=== PATIENT | male | born 1945 | race Caucasian/White ===

== ENCOUNTER → 2016-08-14 | Outpatient (CLI) | payer MEDICARE, OTHER | END | disposition home or self-care (01) | LOC: PCVCIMAG 12:34 | PROVIDERS: ATTEND Nuclear Medicine Nuclear Cardiology | DX: I73.9 Peripheral vascular disease, unspecified (principal); I25.10 Atherosclerotic heart disease of native coronary artery without angina pectoris; I77.9 Disorder of arteries and arterioles, unspecified; I45.9 Conduction disorder, unspecified; I10 Essential (primary) hypertension; E78.00 Pure hypercholesterolemia, unspecified; J44.9 Chronic obstructive pulmonary disease, unspecified; I65.21 Occlusion and stenosis of right carotid artery; Z95.820 Peripheral vascular angioplasty status with implants and grafts | CPT/HCPCS: 93880; 93925; 93978; G0463 ==

== ENCOUNTER → 2017-01-12 | Outpatient (CLI) | payer MEDICARE, OTHER ==
--- NOTE | 2017-01-12 12:10 | PCVCIMAG ---
EXAM: BILATERAL CAROTID DUPLEX INDICATION: Carotid Occlusive Disease. Previous left carotid endarterectomy. FINDINGS: Doppler Measurements (centimeters per second): RIGHT: Peak CCA-76, Peak ECA-136, Diastolic ICA-25, Peak ICA-118, ICA/CCA Ratio-1.6. LEFT: Peak CCA-102, Peak ECA-130, Diastolic ICA-16, Peak ICA-92, ICA/CCA Ratio-0.9. RIGHT CAROTID: The carotid bulb has moderate plaque. The proximal internal carotid artery shows <40% stenosis. The common carotid artery shows no significant stenosis. The external carotid artery shows less than 50% stenosis. LEFT CAROTID: The carotid bulb has minimal plaque. The proximal internal carotid artery shows no significant stenosis. The common carotid artery shows no significant stenosis. The external carotid artery shows less than 50% stenosis. Antegrade flow in both vertebral arteries. IMPRESSION: <40% stenosis of the right internal carotid artery with moderate plaque. No significant stenosis of the left internal carotid artery with minimal plaque. LOC:[id number]
--- NOTE | 2017-01-12 12:14 | PCVCIMAG ---
EXAM: AORTOILIAC DUPLEX INDICATION: Peripheral arterial disease FINDINGS: AORTA: Suprarenal aorta measures maximum diameter of 2.8 cm. There is not a fusiform infrarenal aortic aneurysm. The infrarenal aorta measures maximum diameter of 1.9 cm. No aortic stenosis. RIGHT COMMON ILIAC ARTERY: Maximum diameter is 0.9 cm. No significant stenosis. RIGHT EXTERNAL ILIAC ARTERY: No significant stenosis. LEFT COMMON ILIAC ARTERY: Maximum diameter is 1.0 cm. Mild stenosis. LEFT EXTERNAL ILIAC ARTERY: Mild stenosis proximally. IMPRESSION: No abdominal aortic aneurysm. Right iliac stents maintaining good patency. Mild restenosis left common and external iliac arteries. LOC:[id number]
--- NOTE | 2017-01-12 12:34 | PCVCIMAG ---
EXAM: BILATERAL LOWER EXTREMITY ARTERIAL DUPLEX INDICATION: Peripheral Arterial Disease. Leg pain. FINDINGS: Right Leg: Mild elevated systolic velocities common femoral artery without evidence of flow-limiting stenosis. 70% stenosis origin profunda femoral artery. Satisfactory arterial waveforms throughout the superficial femoral artery and popliteal artery without significant stenosis. Occlusion throughout the posterior tibial artery. The anterior tibial and peroneal arteries are patent. Left Leg: Satisfactory arterial waveforms in the common femoral artery. 70% stenosis proximal profunda femoral artery. Satisfactory arterial waveforms throughout the superficial femoral artery and popliteal artery without significant stenosis. Posterior tibial artery shows occlusion throughout. Peroneal artery is patent. Anterior tibial artery shows 90% stenosis in its midportion. IMPRESSION: No flow-limiting stenosis in the right or left superficial femoral or popliteal artery. Unchanged occlusion of the right and left posterior tibial arteries and 90% stenosis mid left anterior tibial artery. LOC:[id number]
== END | disposition home or self-care (01) ==
LOC: PCVCIMAG 09:18
PROVIDERS: ATTEND Nuclear Medicine Nuclear Cardiology
DX: I73.9 Peripheral vascular disease, unspecified (principal); I65.21 Occlusion and stenosis of right carotid artery; I25.10 Atherosclerotic heart disease of native coronary artery without angina pectoris; I77.89 Other specified disorders of arteries and arterioles; I45.9 Conduction disorder, unspecified; I10 Essential (primary) hypertension; E78.00 Pure hypercholesterolemia, unspecified; F17.200 Nicotine dependence, unspecified, uncomplicated; J44.9 Chronic obstructive pulmonary disease, unspecified; Z95.820 Peripheral vascular angioplasty status with implants and grafts; Z79.82 Long term (current) use of aspirin; Z79.899 Other long term (current) drug therapy; Z96.89 Presence of other specified functional implants
CPT/HCPCS: 36415; 80061; 93005; 93880; 93925; 93978; G0463

== ENCOUNTER → 2017-02-17 | Outpatient (CLI) | payer MEDICARE, OTHER | END | disposition home or self-care (01) | LOC: PCVCCLINIC 16:08 | PROVIDERS: ATTEND Internal Medicine Cardiovascular Disease | DX: I25.10 Atherosclerotic heart disease of native coronary artery without angina pectoris (principal); I44.4 Left anterior fascicular block; E78.00 Pure hypercholesterolemia, unspecified; I73.9 Peripheral vascular disease, unspecified; I10 Essential (primary) hypertension; I77.89 Other specified disorders of arteries and arterioles; J44.9 Chronic obstructive pulmonary disease, unspecified; Z72.0 Tobacco use; Z95.828 Presence of other vascular implants and grafts; Z96.0 Presence of urogenital implants; Z79.82 Long term (current) use of aspirin; Z95.0 Presence of cardiac pacemaker | CPT/HCPCS: 93005; G0463 ==

== ENCOUNTER → 2017-03-31 | Outpatient (CLI) | payer MEDICARE, OTHER | END | disposition home or self-care (01) | LOC: PCVCCLINIC 10:51 | PROVIDERS: ATTEND Internal Medicine Cardiovascular Disease | DX: I25.118 Atherosclerotic heart disease of native coronary artery with other forms of angina pectoris (principal); I73.9 Peripheral vascular disease, unspecified; I10 Essential (primary) hypertension; E78.00 Pure hypercholesterolemia, unspecified; R53.83 Other fatigue; R07.89 Other chest pain; F17.210 Nicotine dependence, cigarettes, uncomplicated; Z95.0 Presence of cardiac pacemaker; Z79.899 Other long term (current) drug therapy | CPT/HCPCS: 93005; G0463 ==

== ENCOUNTER → 2017-03-31 | Outpatient (CLI) | payer MEDICARE, OTHER ==
--- NOTE | 2017-03-31 13:33 | PCVCIMAG ---
APPROVED REPORT Study performed: 03/31/2017 10:42:43 EXAM: Comprehensive 2D, Doppler, and color-flow Echocardiogram Patient Location: Echo lab Status: routine BSA: 1.91 HR: 80 bpmBP: 134/80 mmHg Rhythm: Pacemaker Other Information Study Quality: Adequate Risk Factors: Cardiac Risk Factors: Smoking, HTN Indications Pre-Op Pacemaker CAD 2D Dimensions LVEF(%): 45.78 (>50%) IVSd: 11.08 (7-11mm) LVDd: 47.35 mm PWd: 11.21 (7-11mm) LVDs: 36.56 (25-40mm) Left Atrium: 38.17 (27-40mm) Aortic Root: 34.20 mm LV Single Plane 4CH: 49.52 % LV Single Plane 2CH: 59.47 %Ward's LVEF: 54.49 % Biplane EF: 56.1 % Volumes Left Atrial Volume (Systole) Single Plane 4CH: 47.46 mLSingle Plane 2CH: 48.22 mL LA ESV Index: 29.00 mL/m2 Aortic Valve AoV Peak Vik.: 1.47 m/s AO Peak Gr.: 8.63 mmHgLVOT Max P.56 mmHg LVOT Max V: 0.94 m/s Mitral Valve E/A Ratio: 0.6 MV Decel. Time: 300.22 ms MV E Max Vik.: 0.55 m/s MV A Vik.: 0.85 m/s MV PHT: 87.06 ms IVRT: 138.41 ms Pulmonary Valve PV Peak Vik.: 0.75 m/sPV Peak Gr.: 2.25 mmHg Pulmonary Vein P Vein S: 0.37 m/sP Vein A: 0.41 m/s P Vein D: 0.46 m/sP Vein A Dur.: 131.5 msec P Vein S/D Ratio: 0.80 Tricuspid Valve TR Peak Vik.: 2.79 m/s TR Peak Gr.: 31.09 mmHg Left Ventricle The left ventricle is normal size. There is normal LV segmental wall motion. Borderline concentric left ventricular hypertrophy. Left ventricular systolic function is mildly decreased. Fixed apical hypokinesis consistent with previous studies. LVEF is 45-50%. Grade I - abnormal relaxation pattern. Right Ventricle The right ventricle is normal size. The right ventricular systolic function is normal. Pacemaker lead is present in the right ventricle. Atria The left atrium size is normal. Pacemaker lead is present in the right atrium. Normal right atrial size. Aortic Valve The aortic valve is normal in structure. No aortic regurgitation is present. There is no aortic valvular stenosis. Mitral Valve The mitral valve is normal in structure. Trace mitral valve regurgitation noted. No evidence of mitral valve stenosis. Tricuspid Valve The tricuspid valve is normal in structure. Mild tricuspid valve regurgitation noted. Pulmonic Valve The pulmonary valve is normal in structure. There is no pulmonic valvular regurgitation. Great Vessels The aortic root is normal in size. IVC is normal in size and collapses with >50% inspiration Pericardium There is no pericardial effusion. <Conclusion> Left ventricular systolic function is mildly decreased. Fixed apical hypokinesis consistent with previous studies. Borderline concentric left ventricular hypertrophy. LVEF is 45-50%. Grade I - abnormal relaxation pattern. The left atrium size is normal. The aortic valve is normal in structure. Trace mitral valve regurgitation noted. Mild tricuspid valve regurgitation noted. There is no pericardial effusion.
== END | disposition home or self-care (01) ==
LOC: PCVCIMAG 10:31
PROVIDERS: ATTEND Internal Medicine Cardiovascular Disease
DX: Z01.810 Encounter for preprocedural cardiovascular examination (principal); I08.1 Rheumatic disorders of both mitral and tricuspid valves; I25.118 Atherosclerotic heart disease of native coronary artery with other forms of angina pectoris; I10 Essential (primary) hypertension; I73.9 Peripheral vascular disease, unspecified; E78.00 Pure hypercholesterolemia, unspecified; J44.9 Chronic obstructive pulmonary disease, unspecified; Z95.0 Presence of cardiac pacemaker; Z79.82 Long term (current) use of aspirin; Z72.0 Tobacco use; Z95.820 Peripheral vascular angioplasty status with implants and grafts
CPT/HCPCS: 93005; 93306; G0463

== ENCOUNTER → 2017-07-15 | Outpatient (CLI) | payer MEDICARE, OTHER | END | disposition home or self-care (01) | LOC: PCVCCLINIC 14:00 | PROVIDERS: ATTEND Internal Medicine Cardiovascular Disease | DX: I25.810 Atherosclerosis of coronary artery bypass graft(s) without angina pectoris (principal); I10 Essential (primary) hypertension; E78.00 Pure hypercholesterolemia, unspecified; J44.9 Chronic obstructive pulmonary disease, unspecified; I48.0 Paroxysmal atrial fibrillation; I77.9 Disorder of arteries and arterioles, unspecified; F17.210 Nicotine dependence, cigarettes, uncomplicated; I73.9 Peripheral vascular disease, unspecified; Z95.0 Presence of cardiac pacemaker; Z79.899 Other long term (current) drug therapy | CPT/HCPCS: 80061; 93005; G0463 ==

== ENCOUNTER → 2018-01-17 | Outpatient (CLI) | payer MEDICARE, OTHER | END | disposition home or self-care (01) | LOC: PCVCIMAG 10:11 | DX: I73.9 Peripheral vascular disease, unspecified (principal); I10 Essential (primary) hypertension; E78.00 Pure hypercholesterolemia, unspecified; I77.9 Disorder of arteries and arterioles, unspecified; F17.210 Nicotine dependence, cigarettes, uncomplicated; Z95.0 Presence of cardiac pacemaker; Z79.899 Other long term (current) drug therapy | CPT/HCPCS: 93280; 93925; 93978; G0463 ==

== ENCOUNTER → 2018-04-18 | Outpatient (CLI) | payer MEDICARE, OTHER ==
--- NOTE | 2018-04-18 16:01 | PCVCIMAG ---
APPROVED REPORT Study performed: 04/18/2018 14:20:27 EXAM: Comprehensive 2D, Doppler, and color-flow Echocardiogram Patient Location: Echo lab Status: routine BSA: 1.92 HR: 63 bpmBP: 150/90 mmHg Rhythm: Pacemaker Other Information Study Quality: Adequate Risk Factors: Cardiac Risk Factors: HTN, Hyperlipidemia, Smoking Indications CAD CABG 2D Dimensions IVSd: 12.90 (7-11mm)LVOT Diam: 20.45 (18-24mm) LVDd: 51.42 mm PWd: 10.49 (7-11mm)Ascending Ao: 37.12 (22-36mm) LVDs: 39.01 (25-40mm) Left Atrium: 41.13 (27-40mm) Aortic Root: 36.21 mm LV Single Plane 4CH: 44.30 % LV Single Plane 2CH: 41.11 % Biplane EF: 43.1 % Volumes Left Atrial Volume (Systole) Single Plane 4CH: 43.31 mLSingle Plane 2CH: 47.06 mL LA ESV Index: 24.00 mL/m2 Aortic Valve AoV Peak Vik.: 1.16 m/s AO Peak Gr.: 5.41 mmHgLVOT Max P.05 mmHg LVOT Max V: 0.72 m/s LINDSAY Vmax: 2.02 cm2 Mitral Valve E/A Ratio: 65.0 MV E Max Vik.: 0.65 m/s MV A Vik.: 0.01 m/s Tricuspid Valve TR Peak Vik.: 2.75 m/s TR Peak Gr.: 30.34 mmHg Left Ventricle The left ventricle is normal size. Apical Hypokinesis. There is normal left ventricular wall thickness. Left ventricular systolic function is normal. The left ventricular ejection fraction is within the normal range. LVEF is 35%. This study is not technically sufficient to allow evaluation of the LV diastolic function. Right Ventricle The right ventricle is normal size. The right ventricular systolic function is normal. Pacemaker lead is present in the right ventricle. Atria The left atrium size is normal. Pacemaker lead is present in the right atrium. Aortic Valve The aortic valve is normal in structure. No aortic regurgitation is present. There is no aortic valvular stenosis. Mitral Valve The mitral valve is normal in structure. Trace mitral regurgitation. No evidence of mitral valve stenosis. Tricuspid Valve The tricuspid valve is normal in structure. There is no tricuspid valve regurgitation noted. Pulmonic Valve The pulmonary valve is normal in structure. There is no pulmonic valvular regurgitation. Great Vessels The aortic root is normal in size. IVC is normal in size and collapses >50% with inspiration. Pericardium There is no pericardial effusion. <Conclusion> The left ventricle is normal size. LVEF is 35%. This study is not technically sufficient to allow evaluation of the LV diastolic function. The right ventricle is normal size. The left atrium size is normal. The aortic valve is normal in structure. There is no aortic valvular stenosis. Trace mitral regurgitation. There is no tricuspid valve regurgitation noted. The aortic root is normal in size. There is no pericardial effusion.
--- NOTE | 2018-04-18 17:03 | PCVCIMAG ---
EXAM: LEFT LOWER EXTREMITY ARTERIAL DUPLEX INDICATION: Peripheral Arterial Disease. Leg pain. FINDINGS: Left Leg: Common femoral artery is patent. 80% stenosis origin profunda femoral artery. Superficial femoral artery and popliteal artery maintaining adequate patency. The posterior tibial artery is occluded. The peroneal artery is patent. 70% stenosis at the junction of the anterior tibial artery and dorsalis pedis. IMPRESSION: 80% stenosis origin left profunda femoral artery. Unchanged occlusion left posterior tibial artery and 70% stenosis junction left anterior tibial artery and dorsalis pedis. LOC:[id number]
== END | disposition home or self-care (01) ==
LOC: PCVCIMAG 13:51
PROVIDERS: ATTEND Internal Medicine Cardiovascular Disease
DX: I73.9 Peripheral vascular disease, unspecified (principal); I25.810 Atherosclerosis of coronary artery bypass graft(s) without angina pectoris; I77.9 Disorder of arteries and arterioles, unspecified; I10 Essential (primary) hypertension; E78.00 Pure hypercholesterolemia, unspecified; J44.9 Chronic obstructive pulmonary disease, unspecified; Z72.0 Tobacco use
CPT/HCPCS: 93005; 93306; 93926; G0463

== ENCOUNTER → 2018-10-24 | Outpatient (CLI) | payer MEDICARE, OTHER ==
--- NOTE | 2018-10-24 16:41 | PCVCIMAG ---
EXAM: BILATERAL LOWER EXTREMITY ARTERIAL DUPLEX INDICATION: Peripheral Arterial Disease. Leg pain. FINDINGS: Right Leg: Common femoral artery is patent. 70% stenosis profunda femoral artery. 50% stenosis [place] superficial femoral artery. Distal superficial femoral artery/popliteal artery stent maintaining satisfactory patency. Peroneal artery and posterior tibial arteries are occluded. Anterior tibial artery is patent. Left Leg: Common femoral artery is patent. 60% stenosis profunda femoral artery. Superficial femoral artery and popliteal artery are patent. Occlusion throughout the posterior tibial artery. The anterior tibial and peroneal arteries are patent. 80% stenosis dorsalis pedis. IMPRESSION: 50% stenosis mid [place] right superficial femoral artery. Previous distal right superficial femoral artery and popliteal artery stent maintaining satisfactory patency. Unchanged occlusion of the right peroneal and posterior tibial arteries. Unchanged occlusion of the left posterior tibial artery. LOC:[place] [id number]
== END | disposition home or self-care (01) ==
LOC: PCVCIMAG 08:16
PROVIDERS: ATTEND Internal Medicine Cardiovascular Disease
DX: I73.9 Peripheral vascular disease, unspecified (principal); I25.810 Atherosclerosis of coronary artery bypass graft(s) without angina pectoris; G47.33 Obstructive sleep apnea (adult) (pediatric); E78.00 Pure hypercholesterolemia, unspecified; I10 Essential (primary) hypertension; I65.23 Occlusion and stenosis of bilateral carotid arteries; Z95.0 Presence of cardiac pacemaker; J44.9 Chronic obstructive pulmonary disease, unspecified; Z72.0 Tobacco use
CPT/HCPCS: 36415; 80061; 93280; 93925; G0463

== ENCOUNTER → 2019-04-28 | Outpatient (CLI) | payer MEDICARE, OTHER ==
--- NOTE | 2019-04-28 12:07 | PCVCIMAG ---
EXAM: BILATERAL CAROTID DUPLEX INDICATION: Carotid Occlusive Disease. Previous left carotid endarterectomy. FINDINGS: Doppler Measurements (centimeters per second): RIGHT: Peak CCA-58, Peak ECA-106, Diastolic ICA-19, Peak ICA-94, ICA/CCA Ratio-1.6. LEFT: Peak CCA-76, Peak ECA-124, Diastolic ICA-19, Peak ICA-64, ICA/CCA Ratio-0.9. RIGHT CAROTID: The carotid bulb has moderate plaque. The proximal internal carotid artery shows <40% stenosis. The common carotid artery shows no significant stenosis. The external carotid artery shows no significant stenosis. LEFT CAROTID: The carotid bulb has minimal plaque. The proximal internal carotid artery shows no significant stenosis. The common carotid artery shows no significant stenosis. The external carotid artery shows no significant stenosis. Antegrade flow in both vertebral arteries. IMPRESSION: <40% stenosis of the right internal carotid artery with moderate plaque. No significant stenosis of the left internal carotid artery with minimal plaque. LOC:[place] [id number]
--- NOTE | 2019-04-28 12:13 | PCVCIMAG ---
EXAM: BILATERAL LOWER EXTREMITY ARTERIAL DUPLEX INDICATION: Peripheral Arterial Disease. Leg pain. FINDINGS: Right Leg: Common femoral and profunda femoral arteries are patent. Mild stenosis [place] superficial femoral artery. Previous stent distal superficial femoral artery/upper popliteal artery remains patent. The anterior tibial and peroneal arteries are patent. Unchanged occlusion mid/distal posterior tibial artery. Left Leg: Common femoral and profunda femoral arteries are patent. Superficial femoral artery and popliteal artery maintaining adequate patency. Unchanged occlusion distal posterior tibial artery. The anterior tibial and peroneal arteries are patent. IMPRESSION: Unchanged occlusion mid/distal right posterior tibial artery. Otherwise no flow limiting stenosis in the right lower extremity. Previous stent right distal superficial femoral artery/upper popliteal artery remains patent. Mild stenosis [place] right superficial femoral artery. Unchanged occlusion distal left posterior tibial artery. Otherwise no flow limiting stenosis in the left lower extremity. Mild stenosis distal left superficial femoral artery and distal left popliteal artery. Findings similar to October 2018 study. LOC:[id number]
--- NOTE | 2019-05-01 15:47 | PCVCIMAG ---
APPROVED REPORT Study performed: 04/28/2019 09:44:06 EXAM: Comprehensive 2D, Doppler, and color-flow Echocardiogram Patient Location: Echo lab Room #: 2Status: routine BSA: 1.92 HR: 71 bpmBP: 148/80 mmHg Rhythm: Pacemaker Other Information Study Quality: Adequate Risk Factors: Cardiac Risk Factors: HTN, Hx Smoking, HTN Indications Pacemaker CAD Hypertension/HDD S/P CABG, Complete heart block 2D Dimensions IVSd: 9.56 (7-11mm)LVOT Diam: 21.88 (18-24mm) LVDd: 53.00 mm PWd: 9.00 (7-11mm)Ascending Ao: 31.88 (22-36mm) LVDs: 37.19 (25-40mm) Left Atrium: 39.13 (27-40mm) Aortic Root: 33.62 mm LV Single Plane 4CH: 33.00 % LV Single Plane 2CH: 47.00 % Biplane EF: 43.0 % Volumes Left Atrial Volume (Systole) Single Plane 4CH: 47.98 mLSingle Plane 2CH: 56.02 mL Biplane LA Volume: 53.00 mLLA ESV Index: 27.00 mL/m2 Aortic Valve AoV Peak Vik.: 1.18 m/s AO Peak Gr.: 5.57 mmHgLVOT Max P.62 mmHg LVOT Max V: 0.64 m/s LINDSAY Vmax: 2.03 cm2 Mitral Valve E/A Ratio: 0.7 MV Decel. Time: 97.35 ms MV E Max Vik.: 0.77 m/s MV A Vik.: 1.11 m/s IVRT: 83.04 ms Tricuspid Valve TR Peak Vik.: 2.75 m/s TR Peak Gr.: 30.26 mmHg TV Vmax: 0.53 m/sPA Pressure: 37.00 mmHg Left Ventricle The left ventricle is normal size. [place] damage is seen in the inferior wall and apex. There is normal left ventricular wall thickness. Left ventricular systolic function is moderately decreased. LVEF is 40-45%. Grade I - abnormal relaxation pattern. Right Ventricle The right ventricle is normal size. The right ventricular systolic function is normal. Pacemaker lead is present in the right ventricle. Atria The left atrium size is normal. Pacemaker lead is present in the right atrium. Aortic Valve The aortic valve is not well visualized. Aortic valve leaflets are mildly sclerotic but open well. No aortic regurgitation is present. There is no aortic valvular stenosis. Mitral Valve Mild mitral annular calcification. Mitral valve leaflets open well. Moderate mitral regurgitation. No evidence of mitral valve stenosis. Tricuspid Valve The tricuspid valve is normal in structure. Trace to mild tricuspid regurgitation with a PA pressure of 37 mmHg. Pulmonic Valve Pulmonic valve is not well visualized. There is no pulmonic valvular regurgitation. Great Vessels The aortic root is normal in size. The ascending aorta is normal in size. Aortic arch is not visualized. IVC is normal in size and collapses >50% with inspiration. Pericardium There is no pericardial effusion. There is no pleural effusion. <Conclusion> The left ventricle is normal size. Left ventricular systolic function is moderately decreased. [place] damage is seen in the inferior wall and apex. LVEF is 40-45%. Grade I - abnormal relaxation pattern. The right ventricle is normal size. Pacemaker lead is present in the right ventricle. Pacemaker lead is present in the right atrium. The aortic valve is not well visualized. Aortic valve leaflets are mildly sclerotic but open well. Mild mitral annular calcification. Mitral valve leaflets open well. Moderate mitral regurgitation. Trace to mild tricuspid regurgitation with a PA pressure of 37 mmHg. The aortic root is normal in size. There is no pericardial effusion.
== END | disposition home or self-care (01) ==
LOC: PCVCIMAG 08:12
PROVIDERS: ATTEND Internal Medicine Cardiovascular Disease
DX: I65.23 Occlusion and stenosis of bilateral carotid arteries (principal); I08.1 Rheumatic disorders of both mitral and tricuspid valves; I70.203 Unspecified atherosclerosis of native arteries of extremities, bilateral legs; Z87.891 Personal history of nicotine dependence
CPT/HCPCS: 93306; 93880; 93925

== ENCOUNTER → 2019-05-11 | Outpatient (CLI) | payer MEDICARE, OTHER | END | disposition home or self-care (01) | LOC: PCVCCLINIC 11:00 | PROVIDERS: ATTEND Internal Medicine Cardiovascular Disease | DX: I25.10 Atherosclerotic heart disease of native coronary artery without angina pectoris (principal); I10 Essential (primary) hypertension; I42.9 Cardiomyopathy, unspecified; I48.0 Paroxysmal atrial fibrillation; I49.8 Other specified cardiac arrhythmias; I73.9 Peripheral vascular disease, unspecified; E78.00 Pure hypercholesterolemia, unspecified; G47.33 Obstructive sleep apnea (adult) (pediatric); D68.59 Other primary thrombophilia; I65.23 Occlusion and stenosis of bilateral carotid arteries; Z95.0 Presence of cardiac pacemaker; Z95.1 Presence of aortocoronary bypass graft; Z72.0 Tobacco use; Z82.49 Family history of ischemic heart disease and other diseases of the circulatory system; Z72.89 Other problems related to lifestyle | CPT/HCPCS: 36415; 80061; 93005; 93280; G0463 ==